=== PATIENT | female | born 2005 | race Caucasian/White ===

== ENCOUNTER 2025-03-06 16:25 | Emergency (ER) | payer BC, SELFPAY ==
[2025-03-06 16:29] VITALS: BP 130/84
[2025-03-06 16:57] LABS: % Basophils 0.5 % (0-2); % Immature Granulocytes 0.6 % (0-0.5); % Lymphocytes 20.5 % (20.5-51.1); % Monocytes 8.5 % (1.7-9.3); % Neutrophils 68.9 % (42.2-75.2); Absolute Eosinophils 0.1 10^3/uL (0-0.7); Absolute Immature Granulocytes 0.1 10^3/uL (0-0.05); Absolute Lymphocytes 1.7 10^3/uL (1.2-3.4); Absolute Monocytes 0.7 10^3/uL (0.1-0.6); Absolute Neutrophils 5.8 10^3/uL (1.4-6.5); Hematocrit 35.4 % (37.0-47.0); Hemoglobin 12.1 g/dL (12.0-16.0); Mean Corp Hgb Conc. 34.2 g/dL (33.0-37.0); Mean Corpuscular Volume 87.6 fL (81.0-99.0); Mean Platelet Volume 10.3 fL (7.4-10.4); Nucleated Red Blood Cells % 0 %; Platelet Count 252 10^3/uL (130-400); Red Blood Cell Count 4.04 10^6/uL (4.20-5.40); Red Cell Dist. Width 12.4 % (11.5-14.5); White Blood Cell Count 8.4 10^3/uL (4.8-10.8)
[2025-03-06 17:06] LABS: Urine Albumin 1+ (Neg - Trace); Urine Bilirubin Negative (Negative); Urine Character Clear (Clear); Urine Color Yellow; Urine Glucose Negative (Negative); Urine Ketone Negative (Negative); Urine Leukocyte Negative (Negative); Urine Nitrite Negative (Negative); Urine Occult Blood Negative (Negative); Urine Specific Gravity 1.015 (<1.030); Urine Urobilinogen Negative (Neg - 1+)
[2025-03-06 17:12] LABS: HCG, Serum Qualitative Screen Negative
[2025-03-06 17:16] LABS: ALT (SGPT) < 10 U/L (0-35); AST (SGOT) 19 U/L (14-36); Albumin 4.6 g/dl (3.5-5.0); Alkaline Phosphatase 65 U/L (38-126); Blood Urea Nitrogen 9 mg/dl (7-17); Calcium 10.2 mg/dl (8.4-10.2); Carbon Dioxide 25 mmol/L (22-30); Chloride 104 mmol/L (98-107); Glucose 91 mg/dl (70-99); Lipase 46 U/L (23-300); Potassium 4.4 mmol/L (3.5-5.1); Sodium 140 mmol/L (135-145); Total Bilirubin 0.6 mg/dl (0.2-1.3); Total Protein 7.8 g/dl (6.3-8.2); eGFR > 60.00
[2025-03-06 17:21] LABS: Urine Red Blood Cell 0-2 /HPF (0-2)
--- NOTE | 2025-03-06 19:40 | ED.GENMED ---
History of Present Illness
General
Chief Complaint: Abdominal Pain
Source: patient
Exam Limitations: none
Time Seen by Provider: 03/06/25 19:07
Nursing documentation reviewed up to this point in time: agreed with
History of Present Illness
History of Present Illness:
19-year-old female presenting to the emergency department today with concerns of initial vague abdominal pain with episode of nausea and vomiting last night now pain mainly to the right lower quadrant vague achy. No pelvic symptoms no vaginal
bleeding or discharge. No changes in bowel movements. No urinary symptoms.
Review of Systems
Review of Systems
Allergies reviewed?: Yes
All Other Systems: ROS reviewed and negative except as documented in HPI and ROS
Phy Exam
Physical Exam
Physical Exam:
GENERAL: Alert , in no apparent distress
EYE: pupils equal and reactive
NECK: Supple, no significant adenopathy.
ENT: o/p clr, mmm.
CARDIAC: Regular rate and rhythm .
LUNGS: Clear breath sounds bilaterally, no acute respiratory distress, no wheezes/rales/rhonchi
ABDOMEN: Vague minimal discomfort to the right lower quadrant otherwise remainder of the abdomen is soft, without focal tenderness, no r/g, no cvat
NEUROLOGICAL: Alert and oriented, no focal neuro deficits
SKIN: Warm and dry, skin intact.
MUSCULOSKELETAL: No edema, well perfused.
PSYCH: Normal and appropriate interaction.
Course
Orders/Labs/Results
Orders:
Orders
03/06/25 16:33
IV Insert/Care/Rem.- Treatment PRN
Test Result ONCE
03/06/25 16:42
Complete Blood Count/With Diff Urgent
Comprehensive Metabolic Panel Urgent
HCG, Serum Qualitative Screen Urgent
Comment: Notify provider if positive test present
Lipase Urgent
Urinalysis Reflex To Culture Urgent
Date Specimen was Collected: 03/06/25
Time Specimen was Collected: 16:33
Urine Microscopic Reflex Cult Urgent
03/06/25 17:10
CT Abd/pelvis W Iv Cont Urgent
Comment:
Reason For Exam: rlq pain
Abnormal Lab Results
03/06/25
16:42
RBC 4.04 L 10^6/uL
(4.20-5.40)
Hct 35.4 L %
(37.0-47.0)
Abs Immat Gran (auto) 0.1 H 10^3/uL
(0-0.05)
Absolute Monos (auto) 0.7 H 10^3/uL
(0.1-0.6)
Immature Gran % 0.6 H %
(0-0.5)
Urine Albumin (Reflex) 1+ A
(Neg - Trace)
03/06/25 16:42
03/06/25 16:42
Vital Signs
Initial and Last Documented VS:
Initial Vital Signs
Temp Pulse Resp BP Pulse Ox
98.4 F 79 18 130/84 98
03/06/25 16:29 03/06/25 16:29 03/06/25 16:29 03/06/25 16:29 03/06/25 16:29
Last Documented Vital Signs
Temp Pulse Resp BP Pulse Ox
98.4 F 79 18 130/84 98
03/06/25 16:29 03/06/25 16:29 03/06/25 16:29 03/06/25 16:29 03/06/25 16:29
MDM/Problems Addressed
MDM/Problems Addressed:
19-year-old female presenting to the emergency department today with concerns of a right lower quadrant abdominal pain. Here minimal discomfort to palpation of the right lower quadrant otherwise soft abdomen. Labs unremarkable vital signs normal
urinalysis normal CT scan without emergent findings. Patient in no distress unclear specific etiology no evidence of emergent process advised for close outpatient follow-up. Return precautions given.
*Critical Care Note
Total Time (30-74mins, 75-104mins- exclusive of procedures): Not Applicable
ED Attending Note
-
Portions of this chart may have been created with voice recognition software.� Occasional wrong word or��sound alike� substitutions may have occurred due to the inherent limitations of voice recognition software.
Discharge Plan
Departure
Patient Disposition: Home (Routine Discharge)
Date of Disposition: 03/06/25
Time of Disposition: 19:41
Patient with high blood pressure during this ER visit?: No
Condition: Good
Covid-19: Not Applicable
Discharge Problem:
Abdominal pain
Instructions: Abdominal Pain
Activity Restrictions/Additional Instructions:
You came to the emergency department today with concerns of abdominal pain. Here you have a reassuring assessment with normal CT scan and labs as well as urinalysis. Please slowly progress your diet at home and return for any worsening, new or
concerning symptoms.
Interventions
Interventions:
*Risk Screen - Suicide Last Done: 03/06/25 16:29
*General Assessment Last Done: 03/06/25 16:29
*Neglect/Abuse Screening Last Done: 03/06/25 16:29
*ED- Fall Risk Assessment Last Done: 03/06/25 19:18
*ED COVID-19 Vaccine History Last Done: 03/06/25 19:18
VO-Oedcoz-Qlakyqtnkx Assessment Last Done: 03/06/25 19:18
Discharge Date and Time
Print Language: SLOVENIAN
[2025-03-06 19:48] VITALS: BMI 26.3
[2025-03-06] MEDS: ZOFRAN 4 MG IV (19:49)
== END 2025-03-06 19:55 | disposition home or self-care (01) ==
LOC: EMR 16:25
PROVIDERS: Emergency Medicine; EMERGENCY PHYSICIAN Emergency Medicine
DX: R10.31 Right lower quadrant pain (principal); R11.2 Nausea with vomiting, unspecified
CPT/HCPCS: 99284; 96374; 74177; 80053; 81003; 81015; 83690; 84703; 85025; Q9967